=== PATIENT | female | born 1980 | race Caucasian/White ===

== ENCOUNTER 2017-05-05 12:51 | Emergency (ER) | payer OTHER ==
[~2017-05-05] VITALS: Ht 157.5 cm; Wt 56.7 kg
[~2017-05-05 12:51] MED LIST: ABILIFY 5 MG TAB5 M1; ACCUNEB SO1.25 MG/1; ALPRAZOLAM PO; ALPRAZOLAM1 MG PO; ALPRAZOLAM2 MG PO; B-12 DOTS500 MCG PO; BENADRYL25 MG PO; BENZONATATE100 MG PO; CECLOR500 MG PO; DIFLUCAN150 MG PO; DILANTIN 100 M100 MG; DILANTIN100 MG PO; DOXYCYCLINE 10100 M1 PO; DRONABINOL10 MG; DRONABINOL5 MG; DURAGESIC1 EAC2; ERYTHROMYCIN250 MG PO; FENTANYL 1100 MCG/HR; FENTANYL PA50 MCG/HR TP; FLOMAX0.4 MG PO; GABAPENTIN600 M1 PO; HYDROCODONE-AP1 EAC6 PO; KEPPRA 500 MG500 M1 PO; LEXAPRO 10 MG T10 M2 PO; LEXAPRO20 MG PO; MACROBID 100 M100 M1 PO; MARINOL2.5 MG; MELADOX3 MG PO; NEPHRO-VITE RX1 TA1 PO; NITROFURANTOIN100 MG PO; NORCO 5-325 TA1 EACH PO; ONDANSETRON ODT8 MG PO; OXYCODONE; OXYCODONE HCL 55 MG PO; OXYCODONE HCL15 MG PO; OXYCODONE HCL5 M1 PO; OXYCONTIN10 M1 PO; OXYCONTIN15 MG PO; OXYCONTIN20 MG PO; PERCOCET 10-321 EACH PO; PERCOCET 5-3251 EACH PO; PHENERGAN 25 MG25 M1; PHENERGAN 25 MG25 M1 PO; PHENERGAN25 MG RECTAL; POTASSIUM PO; PREDNISONE; PROMETHAZINE12.5 M1 PO; PROTONIX40 M1 PO; PROTONIX40 M2; RESTORIL30 MG; RESTORIL30 MG PO; ROXICET 5-3251 EACH PO; ROXICODONE15 M1 PO; ROXICODONE5 M1 PO; ROXICODONE5 MG PO; SPRINTEC1 EACH; TIGAN RE; TORADOL 10 MG T10 MG PO; TYLENOL325 MG PO; VANCOCIN 125 M125 M1 PO; VANCOCIN 250 M250 MG PO; VIBRAMYCIN 100100 M2 PO; VICODIN 5-5001 EACH PO; VITAMIN B-650 M1 PO; VOLTAREN; VOLTAREN GEL 1100 G1 TOP; WELCHOL 625 MG625 M1 PO; XANAX 0.25 MG0.25 MG PO; XANAX 0.5 MG0.5 MG PO; XANAX 1 MG TABLE1 MG PO; XANAX XR1 MG PO; XANAX XR2 MG PO; ZANTAC 150MG T150 M1; ZANTAC 150MG T150 MG PO; ZOFRAN 4 MG ORAL4 M1 DIS; ZOFRAN ODT4 MG PO; ZOFRAN4 MG PO; ZOFRAN8 MG PO; ZPAK PO; [UNRECOGNIZED DRUG - OTHER] RE
[2017-05-05] MEDS ORDERED: OXYCODONE HCL 55 MG PO ×2 (13:56)
[2017-05-05] MEDS ORDERED: IBUPROFEN 200200 M1 PO ×2 (13:56)
[2017-05-05 14:54] LABS: ABSOLUTE NEUTROPHILS 3.3 thou/uL (1.4-8.2); BASOPHILS 1.1 % (0.0-2.0); EOSINOPHILS 1.8 % (0.0-3.0); HEMATOCRIT 42.3 % (37.0-47.0); HEMOGLOBIN 13.8 gm/dL (12.0-15.0); LYMPHOCYTES 43.2 % (24.0-44.0); MCH 30.1 pg (26.0-34.0); MCHC 32.6 g/dL (28.0-37.0); MCV 92.3 fL (80.0-100.0); MONOCYTES 5.4 % (1.0-8.0); POLYS 48.5 % (36.0-66.0); RBC 4.58 mil/uL (4.20-5.00); RDW 14.7 % (10.5-14.5); WBC 6.9 thou/uL (4.0-11.0)
[2017-05-05 15:03] LABS: CREATININE 0.6 mg/dL (0.6-1.0); POTASSIUM 4.1 mmol/L (3.5-5.1)
[2017-05-05 15:09] LABS: ALBUMIN 4.1 g/dL (3.4-5.0); TOTAL BILIRUBIN 0.3 mg/dL (<0.1-1.0); TOTAL PROTEIN 7.4 g/dL (6.4-8.2)
[2017-05-05 15:29] LABS: URINE BILIRUBIN NEGATIVE (Negative); URINE BLOOD 3+ (Negative); URINE CLARITY CLEAR; URINE COLOR YELLOW; URINE GLUCOSE-RANDOM* NEGATIVE (Negative); URINE KETONES NEGATIVE (Negative); URINE NITRITE-REFLEX NEGATIVE (Negative); URINE PROTEIN (DIPSTICK) NEGATIVE (Negative); URINE SPECIFIC GRAVITY <= 1.005 (1.003-1.035); URINE UROBILINOGEN 0.2 E.U./dl (0.2-1.0)
[2017-05-05 15:30] LABS: PLATELET COUNT 228 thou/uL (150-400)
[2017-05-05 15:30] LABS: URINE LEUKOCYTES-REFLEX TRACE (Negative)
[2017-05-05 15:36] LABS: SQUAMOUS 4-10 Moderate /LPF (0-3)
[2017-05-05 15:37] LABS: BACTERIA-REFLEX None Seen /HPF (None Seen); CASTS None Seen /LPF (None Seen); CRYSTALS None Seen /LPF (None Seen); URINE RBC 3-10 Few /HPF (0-2); URINE WBC-REFLEX 0-5 Rare /HPF (0-5)
[2017-05-05 16:49] VITALS: BP 106/71
[2017-05-17] MEDS ORDERED: MARINOL10 MG PO ×2 (01:09)
[2017-05-17] MEDS ORDERED: VOLTAREN100 GM TOP ×2 (01:09)
[2017-05-17] MEDS ORDERED: UROCIT-K10 ME1 PO ×2 (01:10)
[2017-05-17] MEDS ORDERED: DURAGESIC1 EAC1 TRANSDERM ×2 (01:10)
[2017-05-17] MEDS ORDERED: CLONAZEPAM 0.50.5 M1 PO ×2 (01:11)
[2017-06-25] MEDS ORDERED: LEXAPRO 10 MG T10 M2 PO ×2 (21:03)
[2017-06-25] MEDS ORDERED: HYDROCODONE-AP1 EAC6 PO ×2 (23:16)
[2017-06-25] MEDS ORDERED: ZOFRAN ODT8 MG PO ×2 (23:16)
== END 2017-05-05 17:37 | disposition home or self-care (01) ==
LOC: ER 12:51
PROVIDERS: Emergency Medicine
DX: K31.84 Gastroparesis (principal); Z76.5 Malingerer [conscious simulation]; R10.9 Unspecified abdominal pain; G89.29 Other chronic pain; Z90.5 Acquired absence of kidney; F32.9 Major depressive disorder, single episode, unspecified; F12.10 Cannabis abuse, uncomplicated; Z88.1 Allergy status to other antibiotic agents; Z88.0 Allergy status to penicillin; Z88.6 Allergy status to analgesic agent; Z88.8 Allergy status to other drugs, medicaments and biological substances

== ENCOUNTER 2017-06-25 19:40 | Emergency (ER) | payer OTHER ==
[~2017-06-25] VITALS: Ht 157.5 cm; Wt 58.1 kg
[~2017-06-25 19:40] MED LIST changes: +CLONAZEPAM 0.50.5 M1 PO; +DURAGESIC1 EAC1 TRANSDERM; +IBUPROFEN 200200 M1 PO; +MARINOL10 MG PO; +UROCIT-K10 ME1 PO; +VOLTAREN100 GM TOP
[2017-06-25] MEDS ORDERED: LEXAPRO 10 MG T10 M2 PO (21:03)
[2017-06-25] MEDS ORDERED: ZOFRAN ODT8 MG PO (23:16)
[2017-06-25] MEDS ORDERED: HYDROCODONE-AP1 EAC6 PO (23:16)
[2017-06-25 23:25] VITALS: BP 114/68
[2017-06-29] MEDS ORDERED: DURAGESIC25 MCG/HR TRANSDERM (11:38)
== END 2017-06-25 23:27 | disposition home or self-care (01) ==
LOC: ER 19:40
DX: S20.212A Contusion of left front wall of thorax, initial encounter (principal); S70.02XA Contusion of left hip, initial encounter; G89.29 Other chronic pain; R10.9 Unspecified abdominal pain; R11.2 Nausea with vomiting, unspecified; F32.9 Major depressive disorder, single episode, unspecified; K31.84 Gastroparesis; Z88.2 Allergy status to sulfonamides; Z88.7 Allergy status to serum and vaccine; Z88.0 Allergy status to penicillin; Z88.1 Allergy status to other antibiotic agents; Z88.8 Allergy status to other drugs, medicaments and biological substances; Z88.6 Allergy status to analgesic agent; W18.39XA Other fall on same level, initial encounter; Y93.89 Activity, other specified; Y92.89 Other specified places as the place of occurrence of the external cause; Y99.8 Other external cause status

== ENCOUNTER 2017-06-28 20:47 | Emergency (ER) | payer OTHER ==
[~2017-06-28] VITALS: Ht 157.5 cm; Wt 58.1 kg
--- NOTE | ~2017-06-28 | EKG ---
[address] [address] ELECTROCARDIOGRAM REPORT Name: KINDRA OLIVARES Room #: 170-1 [facility] M.R.#: [id number] Admission: 06/28/17 Attend Phys: Yamilet Devlin Discharge: Date of : 84 Report #: [id number] THIS REPORT FOR: //name// 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
[~2017-06-28 20:47] MED LIST changes: +ZOFRAN ODT8 MG PO
[2017-06-28 20:49] VITALS: BP 111/77
[2017-06-28 22:02] LABS: ABSOLUTE NEUTROPHILS 4.3 thou/uL (1.4-8.2); BASOPHILS 0.9 % (0.0-2.0); EOSINOPHILS 2.5 % (0.0-3.0); HEMATOCRIT 39.2 % (37.0-47.0); HEMOGLOBIN 13.1 gm/dL (12.0-15.0); LYMPHOCYTES 36.3 % (24.0-44.0); MCH 31.3 pg (26.0-34.0); MCHC 33.5 g/dL (28.0-37.0); MCV 93.5 fL (80.0-100.0); PLATELET COUNT 254 thou/uL (150-400); POLYS 54.3 % (36.0-66.0); RBC 4.19 mil/uL (4.20-5.00); RDW 14.4 % (10.5-14.5); WBC 7.9 thou/uL (4.0-11.0)
[2017-06-28 22:07] LABS: ANION GAP 6 mmol/L (7-16); BUN 14 mg/dL (7-18); CALCIUM 8.9 mg/dL (8.5-10.1); CHLORIDE 104 mmol/L (98-107); CO2 29 mmol/L (21-32); CREATININE 0.9 mg/dL (0.6-1.0); GLUCOSE 92 mg/dL (74-106); POTASSIUM 3.9 mmol/L (3.5-5.1); SODIUM 139 mmol/L (136-145)
[2017-06-28 22:15] LABS: ALBUMIN 3.9 g/dL (3.4-5.0); LIPASE 145 U/L (73-393); SGOT 19 U/L (15-37); SGPT 30 U/L (30-65); TOTAL BILIRUBIN 0.2 mg/dL (<0.1-1.0); TOTAL PROTEIN 6.9 g/dL (6.4-8.2); TROPONIN-I < 0.04 ng/mL (<0.06)
[2017-06-29 04:03] LABS: URINE BILIRUBIN NEGATIVE (Negative); URINE BLOOD 3+ (Negative); URINE CLARITY CLEAR; URINE COLOR YELLOW; URINE GLUCOSE-RANDOM* NEGATIVE (Negative); URINE KETONES NEGATIVE (Negative); URINE LEUKOCYTES-REFLEX NEGATIVE (Negative); URINE NITRITE-REFLEX NEGATIVE (Negative); URINE PROTEIN (DIPSTICK) NEGATIVE (Negative); URINE SPECIFIC GRAVITY 1.015 (1.005-1.035); URINE UROBILINOGEN 0.2 E.U./dl (0.2-1.0)
[2017-06-29 04:19] LABS: CASTS None Seen /LPF (None Seen); MUCUS 0-3 Light strn/LPF (None Seen); SQUAMOUS 0-3 Few /LPF (0-3); URINE WBC-REFLEX 0-5 Rare /HPF (0-5)
[2017-06-29 04:20] LABS: BACTERIA-REFLEX 1-9 Few /HPF (None Seen); CRYSTALS None Seen /LPF (None Seen)
[2017-06-29] MEDS ORDERED: DURAGESIC25 MCG/HR TRANSDERM ×2 (11:38)
[2017-06-29 11:44] VITALS: BP 117/51
[2017-06-29 12:02] VITALS: BP 117/51
== END 2017-06-29 12:03 | disposition home or self-care (01) ==
LOC: ER 20:47 → EROBS 22:01 → ER 06-29 12:03
PROVIDERS: Emergency Medicine
DX: G89.29 Other chronic pain (principal); R10.9 Unspecified abdominal pain; R11.2 Nausea with vomiting, unspecified; R07.89 Other chest pain; Z85.05 Personal history of malignant neoplasm of liver; K58.9 Irritable bowel syndrome, unspecified; Z88.1 Allergy status to other antibiotic agents; Z88.0 Allergy status to penicillin; Z88.5 Allergy status to narcotic agent; Z88.2 Allergy status to sulfonamides; Z88.8 Allergy status to other drugs, medicaments and biological substances

== ENCOUNTER 2017-07-13 16:25 | Emergency (ER) | payer OTHER ==
[~2017-07-13] VITALS: Ht 157.5 cm; Wt 58.1 kg
[~2017-07-13 16:25] MED LIST changes: +DURAGESIC25 MCG/HR TRANSDERM
[2017-07-13 17:22] LABS: ABSOLUTE NEUTROPHILS 3.3 thou/uL (1.4-8.2); BASOPHILS 0.8 % (0.0-2.0); EOSINOPHILS 0.9 % (0.0-3.0); HEMATOCRIT 39.9 % (37.0-47.0); HEMOGLOBIN 13.6 gm/dL (12.0-15.0); LYMPHOCYTES 32.1 % (24.0-44.0); MCH 31.5 pg (26.0-34.0); MCHC 34.1 g/dL (28.0-37.0); MCV 92.6 fL (80.0-100.0); MONOCYTES 6.6 % (1.0-8.0); PLATELET COUNT 269 thou/uL (150-400); POLYS 59.6 % (36.0-66.0); RBC 4.31 mil/uL (4.20-5.00); RDW 14.1 % (10.5-14.5); WBC 5.6 thou/uL (4.0-11.0)
[2017-07-13 17:29] LABS: CALCIUM 9.6 mg/dL (8.5-10.1); CREATININE 0.7 mg/dL (0.6-1.0); POTASSIUM 3.4 mmol/L (3.5-5.1)
[2017-07-13 17:35] LABS: ALBUMIN 4.4 g/dL (3.4-5.0); DIRECT BILIRUBIN 0.1 mg/dL (<0.1-0.3); TOTAL BILIRUBIN 0.7 mg/dL (<0.1-1.0); TOTAL PROTEIN 7.8 g/dL (6.4-8.2)
[2017-07-13] MEDS ORDERED: PHENERGAN 25 MG25 M1 PO (18:09)
[2017-07-13] MEDS ORDERED: PROMS25 WY RECTAL (18:09)
[2017-07-13] MEDS ORDERED: OXYCODONE HCL 55 MG PO (19:23)
[2017-07-13] MEDS ORDERED: ZOFRAN ODT4 MG PO (19:29)
[2017-07-13] MEDS ORDERED: OXYCODONE HCL15 MG PO (19:41)
[2017-07-13 20:26] VITALS: BP 106/61
== END 2017-07-13 20:29 | disposition home or self-care (01) ==
LOC: ER 16:25
PROVIDERS: Emergency Medicine
DX: G89.29 Other chronic pain (principal); R10.13 Epigastric pain; R11.2 Nausea with vomiting, unspecified; R19.7 Diarrhea, unspecified; F32.9 Major depressive disorder, single episode, unspecified; Z90.49 Acquired absence of other specified parts of digestive tract; K31.84 Gastroparesis; Z88.0 Allergy status to penicillin; Z88.1 Allergy status to other antibiotic agents; Z88.2 Allergy status to sulfonamides; Z88.7 Allergy status to serum and vaccine; Z88.8 Allergy status to other drugs, medicaments and biological substances

== ENCOUNTER 2017-07-27 15:05 | Emergency (ER) | payer OTHER ==
[~2017-07-27] VITALS: Ht 165.1 cm; Wt 59.0 kg
--- NOTE | ~2017-07-27 | EKG ---
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 : 1980 Requested By: Jaime Lanza Order Number: [id number] MD: Dong Parker Measurements Intervals [place] Rate: 77 P: 51 [place]: 126 QRS: 85 QRSD: 80 T: 70 QT: 405 QTc: 459 Interpretive Statements Sinus rhythm Nonspecific T abnormalities, lateral leads Compared to ECG 06/28/2017 21:22:29 T-wave abnormality now present Electronically Signed On 07-28-2017 8:23:45 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
[~2017-07-27 15:05] MED LIST changes: +PROMS25 WY RECTAL
[2017-07-27 16:19] LABS: ABSOLUTE NEUTROPHILS 2.6 thou/uL (1.4-8.2); BASOPHILS 0.9 % (0.0-2.0); EOSINOPHILS 3.1 % (0.0-3.0); HEMATOCRIT 41.3 % (37.0-47.0); MCH 31.9 pg (26.0-34.0); MCHC 33.9 g/dL (28.0-37.0); MCV 94.1 fL (80.0-100.0); MONOCYTES 9.1 % (1.0-8.0); PLATELET COUNT 239 thou/uL (150-400); POLYS 46.9 % (36.0-66.0); RBC 4.39 mil/uL (4.20-5.00); RDW 14.2 % (10.5-14.5); WBC 5.5 thou/uL (4.0-11.0)
[2017-07-27 16:30] LABS: ANION GAP 6 mmol/L (7-16); BUN 14 mg/dL (7-18); CALCIUM 8.9 mg/dL (8.5-10.1); CHLORIDE 105 mmol/L (98-107); CO2 27 mmol/L (21-32); CREATININE 0.7 mg/dL (0.6-1.0); GLUCOSE 96 mg/dL (74-106); POTASSIUM 4.6 mmol/L (3.5-5.1); SODIUM 138 mmol/L (136-145)
[2017-07-27 16:33] LABS: URINE BILIRUBIN NEGATIVE (Negative); URINE BLOOD NEGATIVE (Negative); URINE CLARITY CLEAR; URINE COLOR YELLOW; URINE GLUCOSE-RANDOM* NEGATIVE (Negative); URINE KETONES NEGATIVE (Negative); URINE LEUKOCYTES NEGATIVE (Negative); URINE NITRITE NEGATIVE (Negative); URINE PROTEIN (DIPSTICK) NEGATIVE (Negative); URINE UROBILINOGEN 0.2 E.U./dl (0.2-1.0)
[2017-07-27 16:37] LABS: ALBUMIN 3.8 g/dL (3.4-5.0); DIRECT BILIRUBIN < 0.1 mg/dL (<0.1-0.3); LIPASE 149 U/L (73-393); SGOT 25 U/L (15-37); SGPT 22 U/L (30-65); TOTAL BILIRUBIN 0.2 mg/dL (<0.1-1.0); TOTAL PROTEIN 7.2 g/dL (6.4-8.2)
[2017-07-27] MEDS ORDERED: CARAFATE 1 GM TA1 G1 PO (17:37)
[2017-07-27] MEDS ORDERED: ATIVAN0.5 MG PO (17:45)
[2017-07-27 18:09] VITALS: BP 129/80
== END 2017-07-27 18:10 | disposition home or self-care (01) ==
LOC: ER 15:05
PROVIDERS: Nurse Practitioner
DX: G89.29 Other chronic pain (principal); R10.9 Unspecified abdominal pain; Z90.49 Acquired absence of other specified parts of digestive tract; Z88.0 Allergy status to penicillin; Z88.2 Allergy status to sulfonamides; Z88.1 Allergy status to other antibiotic agents; Z88.8 Allergy status to other drugs, medicaments and biological substances

== ENCOUNTER 2017-12-15 23:46 | Emergency (ER) | payer OTHER ==
[~2017-12-15] VITALS: Ht 157.5 cm; Wt 62.1 kg
[~2017-12-15 23:46] MED LIST changes: +ATIVAN0.5 MG PO; +CARAFATE 1 GM TA1 G1 PO
[2017-12-16 02:12] LABS: ABSOLUTE NEUTROPHILS 7.1 thou/uL (1.4-8.2); BASOPHILS 1.1 % (0.0-2.0); EOSINOPHILS 2.1 % (0.0-3.0); HEMATOCRIT 36.4 % (37.0-47.0); HEMOGLOBIN 12.5 gm/dL (12.0-15.0); LYMPHOCYTES 25.2 % (24.0-44.0); MCH 32.2 pg (26.0-34.0); MCHC 34.5 g/dL (28.0-37.0); MCV 93.3 fL (80.0-100.0); MONOCYTES 5.7 % (1.0-8.0); PLATELET COUNT 267 thou/uL (150-400); POLYS 65.9 % (36.0-66.0); WBC 10.7 thou/uL (4.0-11.0)
[2017-12-16 02:31] LABS: ANION GAP 9 mmol/L (7-16); BUN 12 mg/dL (7-18); CALCIUM 9.2 mg/dL (8.5-10.1); CHLORIDE 103 mmol/L (98-107); CO2 28 mmol/L (21-32); CREATININE 0.8 mg/dL (0.6-1.0); GLUCOSE 103 mg/dL (74-106); POTASSIUM 3.4 mmol/L (3.5-5.1); SODIUM 140 mmol/L (136-145)
[2017-12-16 02:36] LABS: DIRECT BILIRUBIN < 0.1 mg/dL (<0.1-0.3); LIPASE 124 U/L (73-393); SGOT 29 U/L (15-37); SGPT 40 U/L (30-65); TOTAL BILIRUBIN 0.3 mg/dL (<0.1-1.0); TOTAL PROTEIN 7.2 g/dL (6.4-8.2)
[2017-12-16 02:55] LABS: URINE BILIRUBIN ND (Negative); URINE CLARITY CLEAR; URINE GLUCOSE-RANDOM* ND (Negative); URINE KETONES ND (Negative); URINE PROTEIN (DIPSTICK) ND (Negative); URINE SPECIFIC GRAVITY ND (1.005-1.035)
[2017-12-16 02:56] LABS: URINE BLOOD ND (Negative); URINE COLOR ORANGE; URINE LEUKOCYTES-REFLEX ND (Negative); URINE NITRITE-REFLEX ND (Negative); URINE UROBILINOGEN ND E.U./dl (0.2-1.0)
[2017-12-16 03:03] LABS: MUCUS 0-3 Light strn/LPF (None Seen); SQUAMOUS >10 Many /LPF (0-3)
[2017-12-16 03:04] LABS: BACTERIA-REFLEX >30 Many /HPF (None Seen); CASTS None Seen /LPF (None Seen); CRYSTALS None Seen /LPF (None Seen); URINE RBC >20 Many /HPF (0-2); URINE WBC-REFLEX 6-15 Few /HPF (0-5)
[2017-12-16] MEDS ORDERED: IMODIUM A-D2 MG PO (05:49)
[2017-12-16] MEDS ORDERED: ZOFRAN ODT4 MG PO (05:50)
== END 2017-12-16 06:27 | disposition home or self-care (01) ==
LOC: ER 23:46
PROVIDERS: Emergency Medicine
DX: R19.7 Diarrhea, unspecified (principal); R10.9 Unspecified abdominal pain; M54.9 Dorsalgia, unspecified; F11.20 Opioid dependence, uncomplicated; F32.9 Major depressive disorder, single episode, unspecified; G89.29 Other chronic pain; Z85.05 Personal history of malignant neoplasm of liver; Z90.49 Acquired absence of other specified parts of digestive tract; Z86.718 Personal history of other venous thrombosis and embolism; Z88.2 Allergy status to sulfonamides; Z88.0 Allergy status to penicillin; Z88.1 Allergy status to other antibiotic agents; Z88.8 Allergy status to other drugs, medicaments and biological substances

== ENCOUNTER 2017-12-17 23:24 | Emergency (ER) | payer OTHER ==
[~2017-12-17] VITALS: Ht 157.5 cm; Wt 59.0 kg
[~2017-12-17 23:24] MED LIST changes: +IMODIUM A-D2 MG PO
[2017-12-17 23:53] LABS: URINE BILIRUBIN NEGATIVE (Negative); URINE BLOOD 3+ (Negative); URINE CLARITY CLEAR; URINE COLOR YELLOW; URINE GLUCOSE-RANDOM* TRACE (Negative); URINE KETONES NEGATIVE (Negative); URINE PROTEIN (DIPSTICK) 1+ (Negative); URINE SPECIFIC GRAVITY <= 1.005 (1.005-1.035)
[2017-12-17 23:57] LABS: URINE LEUKOCYTES-REFLEX 2+ (Negative); URINE NITRITE-REFLEX POSITIVE (Negative)
[2017-12-18 00:01] LABS: CASTS None Seen /LPF (None Seen); MUCUS None Seen strn/LPF (None Seen); SQUAMOUS None Seen /LPF (0-3)
[2017-12-18 00:02] LABS: CRYSTALS None Seen /LPF (None Seen)
[2017-12-18 02:55] LABS: ABSOLUTE NEUTROPHILS 7.2 thou/uL (1.4-8.2); BASOPHILS 0.6 % (0.0-2.0); EOSINOPHILS 1.5 % (0.0-3.0); HEMATOCRIT 36.4 % (37.0-47.0); HEMOGLOBIN 12.5 gm/dL (12.0-15.0); LYMPHOCYTES 20.1 % (24.0-44.0); MCH 31.8 pg (26.0-34.0); MCHC 34.2 g/dL (28.0-37.0); MCV 93.1 fL (80.0-100.0); PLATELET COUNT 269 thou/uL (150-400); POLYS 72.8 % (36.0-66.0); RBC 3.91 mil/uL (4.20-5.00); WBC 9.8 thou/uL (4.0-11.0)
[2017-12-18 03:01] LABS: CALCIUM 9.1 mg/dL (8.5-10.1); CREATININE 0.9 mg/dL (0.6-1.0); POTASSIUM 3.7 mmol/L (3.5-5.1)
[2017-12-18] MEDS ORDERED: KEFLEX500 M1 PO (03:12)
== END 2017-12-18 03:49 | disposition home or self-care (01) ==
LOC: ER 23:24
PROVIDERS: Emergency Medicine
DX: N39.0 Urinary tract infection, site not specified (principal); R19.7 Diarrhea, unspecified; F11.20 Opioid dependence, uncomplicated; F32.9 Major depressive disorder, single episode, unspecified; G89.29 Other chronic pain; Z85.05 Personal history of malignant neoplasm of liver; Z86.718 Personal history of other venous thrombosis and embolism; Z90.49 Acquired absence of other specified parts of digestive tract; Z88.2 Allergy status to sulfonamides; Z88.0 Allergy status to penicillin; Z88.1 Allergy status to other antibiotic agents; Z88.8 Allergy status to other drugs, medicaments and biological substances

== ENCOUNTER 2018-07-23 12:13 | Emergency (ER) | payer OTHER ==
[~2018-07-23] VITALS: Ht 157.5 cm; Wt 59.0 kg
[~2018-07-23 12:13] MED LIST changes: +KEFLEX500 M1 PO
[2018-07-23] MEDS ORDERED: ZOFRAN ODT4 MG PO (13:09)
[2018-07-23 14:33] LABS: BASOPHILS 0.6 % (0.0-2.0); EOSINOPHILS 1.7 % (0.0-3.0); HEMATOCRIT 36.1 % (37.0-47.0); HEMOGLOBIN 12.3 gm/dL (12.0-15.0); MCH 31.3 pg (26.0-34.0); MCHC 33.9 g/dL (28.0-37.0); MCV 92.3 fL (80.0-100.0); MONOCYTES 8.8 % (1.0-8.0); PLATELET COUNT 321 thou/uL (150-400); POLYS 58.9 % (36.0-66.0); RBC 3.91 mil/uL (4.20-5.00); RDW 15.3 % (10.5-14.5); WBC 8.4 thou/uL (4.0-11.0)
[2018-07-23 14:41] LABS: ANION GAP 11 mmol/L (7-16); BUN 19 mg/dL (7-18); CHLORIDE 104 mmol/L (98-107); CO2 26 mmol/L (21-32); CREATININE 0.8 mg/dL (0.6-1.0); GLUCOSE 85 mg/dL (74-106); SODIUM 141 mmol/L (136-145)
[2018-07-23 14:46] LABS: ALBUMIN 3.9 g/dL (3.4-5.0); DIRECT BILIRUBIN < 0.1 mg/dL (<0.1-0.3); LIPASE 255 U/L (73-393); SGOT 21 U/L (15-37); SGPT 25 U/L (30-65); TOTAL BILIRUBIN 0.3 mg/dL (<0.1-1.0); TOTAL PROTEIN 6.8 g/dL (6.4-8.2)
[2018-07-23 16:05] LABS: URINE BILIRUBIN NEGATIVE (Negative); URINE BLOOD NEGATIVE (Negative); URINE CLARITY CLEAR; URINE COLOR YELLOW; URINE GLUCOSE-RANDOM* NEGATIVE (Negative); URINE KETONES NEGATIVE (Negative); URINE LEUKOCYTES-REFLEX NEGATIVE (Negative); URINE NITRITE-REFLEX NEGATIVE (Negative); URINE PROTEIN (DIPSTICK) NEGATIVE (Negative); URINE SPECIFIC GRAVITY <= 1.005 (1.005-1.035); URINE UROBILINOGEN 0.2 E.U./dl (0.2-1.0)
[2018-07-23] MEDS ORDERED: NORFLEX100 MG PO (16:08)
[2018-07-23 16:47] VITALS: BP 114/72
== END 2018-07-23 16:48 | disposition home or self-care (01) ==
LOC: ER 12:13
PROVIDERS: Emergency Medicine
DX: S16.1XXA Strain of muscle, fascia and tendon at neck level, initial encounter (principal); R10.13 Epigastric pain; K58.9 Irritable bowel syndrome, unspecified; R10.9 Unspecified abdominal pain; G89.29 Other chronic pain; F32.9 Major depressive disorder, single episode, unspecified; K31.84 Gastroparesis; I10 Essential (primary) hypertension; Z88.8 Allergy status to other drugs, medicaments and biological substances; Z88.6 Allergy status to analgesic agent; Z88.1 Allergy status to other antibiotic agents; Z88.0 Allergy status to penicillin; Z88.2 Allergy status to sulfonamides; Z91.041 Radiographic dye allergy status; Z88.7 Allergy status to serum and vaccine; Z90.5 Acquired absence of kidney; Z90.49 Acquired absence of other specified parts of digestive tract; Z86.718 Personal history of other venous thrombosis and embolism; Z85.05 Personal history of malignant neoplasm of liver; Z85.528 Personal history of other malignant neoplasm of kidney; V89.2XXA Person injured in unspecified motor-vehicle accident, traffic, initial encounter; Y92.89 Other specified places as the place of occurrence of the external cause; Y93.89 Activity, other specified; Y99.8 Other external cause status

== ENCOUNTER 2018-07-25 19:39 | Emergency (ER) | payer OTHER ==
[~2018-07-25] VITALS: Ht 157.5 cm; Wt 59.0 kg
[~2018-07-25 19:39] MED LIST changes: +NORFLEX100 MG PO
[2018-07-25 20:07] LABS: AMP/METHAMP Negative (Negative); BARBITURATES Negative (Negative); BENZODIAZEPINES Negative (Negative); COCAINE Negative (Negative); METHADONE Negative (Negative); OPIATES Negative (Negative); PCP Negative (Negative)
[2018-07-25] MEDS ORDERED: ROXICODONE5 M2 PO (20:40)
[2018-07-25] MEDS ORDERED: CYCLOBENZAPRINE5 MG PO (20:40)
[2018-07-25 21:49] VITALS: BP 121/72
== END 2018-07-25 21:15 | disposition home or self-care (01) ==
LOC: ER 19:39
PROVIDERS: Emergency Medicine
DX: S16.1XXA Strain of muscle, fascia and tendon at neck level, initial encounter (principal); S39.012A Strain of muscle, fascia and tendon of lower back, initial encounter; G89.29 Other chronic pain; R10.9 Unspecified abdominal pain; F32.9 Major depressive disorder, single episode, unspecified; K31.84 Gastroparesis; K58.9 Irritable bowel syndrome, unspecified; Z88.8 Allergy status to other drugs, medicaments and biological substances; Z88.6 Allergy status to analgesic agent; Z88.1 Allergy status to other antibiotic agents; Z88.0 Allergy status to penicillin; Z88.2 Allergy status to sulfonamides; Z91.048 Other nonmedicinal substance allergy status; Z88.7 Allergy status to serum and vaccine; Z90.49 Acquired absence of other specified parts of digestive tract; Z86.718 Personal history of other venous thrombosis and embolism; Z85.528 Personal history of other malignant neoplasm of kidney; Z90.5 Acquired absence of kidney; V89.2XXA Person injured in unspecified motor-vehicle accident, traffic, initial encounter; Y92.89 Other specified places as the place of occurrence of the external cause; Y93.89 Activity, other specified; Y99.8 Other external cause status

== ENCOUNTER 2018-07-30 20:19 | Emergency (ER) | payer OTHER ==
[~2018-07-30] VITALS: Ht 157.5 cm; Wt 59.0 kg
[~2018-07-30 20:19] MED LIST changes: +CYCLOBENZAPRINE5 MG PO; +ROXICODONE5 M2 PO
[2018-07-31 00:17] LABS: URINE BILIRUBIN NEGATIVE (Negative); URINE BLOOD NEGATIVE (Negative); URINE CLARITY CLEAR; URINE COLOR YELLOW; URINE GLUCOSE-RANDOM* NEGATIVE (Negative); URINE KETONES NEGATIVE (Negative); URINE NITRITE-REFLEX NEGATIVE (Negative); URINE PROTEIN (DIPSTICK) TRACE (Negative); URINE SPECIFIC GRAVITY 1.015 (1.005-1.035); URINE UROBILINOGEN 0.2 E.U./dl (0.2-1.0)
[2018-07-31 00:18] LABS: URINE LEUKOCYTES-REFLEX 1+ (Negative)
[2018-07-31 00:27] LABS: SQUAMOUS 0-3 Few /LPF (0-3)
[2018-07-31 00:28] LABS: CASTS None Seen /LPF (None Seen); CRYSTALS None Seen /LPF (None Seen); MUCUS 4-6 Moderate strn/LPF (None Seen); URINE RBC 3-10 Few /HPF (0-2)
[2018-07-31] MEDS ORDERED: MEDROLDOSEPACK PO (00:50)
[2018-07-31] MEDS ORDERED: MACROBID 100 M100 M1 PO (00:50)
[2018-07-31] MEDS ORDERED: FLEXERIL PO (00:50)
[2018-07-31 01:08] VITALS: BP 111/85
== END 2018-07-31 01:09 | disposition home or self-care (01) ==
LOC: ER 20:19
PROVIDERS: Emergency Medicine
DX: N39.0 Urinary tract infection, site not specified (principal); M54.41 Lumbago with sciatica, right side; G89.29 Other chronic pain; R10.9 Unspecified abdominal pain; F32.9 Major depressive disorder, single episode, unspecified; K31.84 Gastroparesis; K58.9 Irritable bowel syndrome, unspecified; Z88.6 Allergy status to analgesic agent; Z88.0 Allergy status to penicillin; Z88.1 Allergy status to other antibiotic agents; Z88.2 Allergy status to sulfonamides; Z88.7 Allergy status to serum and vaccine; Z88.8 Allergy status to other drugs, medicaments and biological substances; Z85.528 Personal history of other malignant neoplasm of kidney; Z90.5 Acquired absence of kidney; Z85.05 Personal history of malignant neoplasm of liver; Z90.49 Acquired absence of other specified parts of digestive tract; Z86.718 Personal history of other venous thrombosis and embolism

== ENCOUNTER 2018-08-08 18:04 | Emergency (ER) | payer OTHER ==
[~2018-08-08] VITALS: Ht 157.5 cm; Wt 60.8 kg
[~2018-08-08 18:04] MED LIST changes: +FLEXERIL PO; +MEDROLDOSEPACK PO
[2018-08-08 19:00] LABS: HEMATOCRIT 35.3 % (37.0-47.0); MCH 31.9 pg (26.0-34.0); MCV 93.7 fL (80.0-100.0); RBC 3.77 mil/uL (4.20-5.00); RDW 15.8 % (10.5-14.5); WBC 7.3 thou/uL (4.0-11.0)
[2018-08-08 19:13] LABS: URINE BILIRUBIN NEGATIVE (Negative); URINE BLOOD NEGATIVE (Negative); URINE CLARITY CLEAR; URINE COLOR YELLOW; URINE GLUCOSE-RANDOM* NEGATIVE (Negative); URINE KETONES NEGATIVE (Negative); URINE LEUKOCYTES-REFLEX NEGATIVE (Negative); URINE NITRITE-REFLEX NEGATIVE (Negative); URINE PROTEIN (DIPSTICK) NEGATIVE (Negative); URINE UROBILINOGEN 0.2 E.U./dl (0.2-1.0)
[2018-08-08 21:42] LABS: CALCIUM 8.7 mg/dL (8.5-10.1); CREATININE 0.6 mg/dL (0.6-1.0); POTASSIUM 4.2 mmol/L (3.5-5.1)
[2018-08-08 23:32] VITALS: BP 115/65
== END 2018-08-08 23:32 | disposition home or self-care (01) ==
LOC: ER 18:04
PROVIDERS: Emergency Medicine
DX: G89.29 Other chronic pain (principal); R10.9 Unspecified abdominal pain; F32.9 Major depressive disorder, single episode, unspecified; Z85.05 Personal history of malignant neoplasm of liver; Z90.49 Acquired absence of other specified parts of digestive tract; Z88.1 Allergy status to other antibiotic agents; Z88.0 Allergy status to penicillin; Z88.7 Allergy status to serum and vaccine; Z88.8 Allergy status to other drugs, medicaments and biological substances

== ENCOUNTER 2018-10-24 15:30 | Emergency (ER) | payer OTHER ==
[~2018-10-24] VITALS: Ht 157.5 cm; Wt 58.5 kg
[2018-10-24 16:14] LABS: ABSOLUTE NEUTROPHILS 3.8 thou/uL (1.4-8.2); BASOPHILS 0.8 % (0.0-2.0); EOSINOPHILS 2.6 % (0.0-3.0); HEMATOCRIT 37.6 % (37.0-47.0); HEMOGLOBIN 12.5 gm/dL (12.0-15.0); LYMPHOCYTES 26.5 % (24.0-44.0); MCH 31.5 pg (26.0-34.0); MCHC 33.2 g/dL (28.0-37.0); MONOCYTES 10.5 % (1.0-8.0); PLATELET COUNT 247 thou/uL (150-400); POLYS 59.6 % (36.0-66.0); RBC 3.96 mil/uL (4.20-5.00); RDW 13.5 % (10.5-14.5); WBC 6.3 thou/uL (4.0-11.0)
[2018-10-24 16:18] LABS: CALCIUM 8.6 mg/dL (8.5-10.1); CREATININE 0.9 mg/dL (0.6-1.0); POTASSIUM 4.3 mmol/L (3.5-5.1)
[2018-10-24 16:24] LABS: ALBUMIN 3.6 g/dL (3.4-5.0); TOTAL BILIRUBIN 0.2 mg/dL (<0.1-1.0); TOTAL PROTEIN 6.3 g/dL (6.4-8.2)
[2018-10-24] MEDS ORDERED: XANAX1 MG PO (16:29)
[2018-10-24 18:38] VITALS: BP 104/57
[2018-10-24 18:40] LABS: URINE BILIRUBIN NEGATIVE (Negative); URINE BLOOD NEGATIVE (Negative); URINE CLARITY CLEAR; URINE GLUCOSE-RANDOM* NEGATIVE (Negative); URINE KETONES NEGATIVE (Negative); URINE NITRITE-REFLEX NEGATIVE (Negative); URINE PROTEIN (DIPSTICK) NEGATIVE (Negative); URINE UROBILINOGEN 0.2 E.U./dl (0.2-1.0)
[2018-10-24 18:41] LABS: URINE COLOR YELLOW; URINE LEUKOCYTES-REFLEX 1+ (Negative)
[2018-10-24 18:42] LABS: SQUAMOUS 0-3 Few /LPF (0-3)
[2018-10-24 18:43] LABS: BACTERIA-REFLEX 1-9 Few /HPF (None Seen); CASTS None Seen /LPF (None Seen); CRYSTALS None Seen /LPF (None Seen); URINE RBC None Seen /HPF (0-2); URINE WBC-REFLEX 0-5 Rare /HPF (0-5)
--- NOTE | 2018-10-25 16:10 | EKG ---
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 : 1980 Requested By: Shasta Calderon Order Number: [id number] MD: Ehsan Walker Measurements Intervals [place] Rate: 132 P: 57 [place]: 98 QRS: 70 QRSD: 114 T: 59 QT: 322 QTc: 477 Interpretive Statements Sinus tachycardia Borderline intraventricular conduction delay Nonspecific ST segment abnormalities Compared to ECG 07/27/2017 15:21:28 Sinus rhythm no longer present Electronically Signed On 10-25-2018 16:10:08 CDT by Ehsan Walker [email or web address] ��������������������������������������������� <ELECTRONICALLY SIGNED> ���������������������������������������� By: Ehsan Walker MD ��������������������������������������������� 10/25/18 1610 1738 1738 Ehsan Walker MD /LEO
== END 2018-10-24 18:55 | disposition home or self-care (01) ==
LOC: ER 15:30
PROVIDERS: Physician Assistant
DX: G89.29 Other chronic pain (principal); M54.5 Low back pain; I42.9 Cardiomyopathy, unspecified; Z85.05 Personal history of malignant neoplasm of liver; Z88.1 Allergy status to other antibiotic agents; Z88.5 Allergy status to narcotic agent; Z88.2 Allergy status to sulfonamides; Z88.8 Allergy status to other drugs, medicaments and biological substances; Z88.7 Allergy status to serum and vaccine

== ENCOUNTER 2018-11-24 22:24 | Emergency (ER) | payer OTHER ==
[~2018-11-24] VITALS: Ht 157.5 cm; Wt 69.8 kg
[~2018-11-24 22:24] MED LIST changes: +XANAX1 MG PO
[2018-11-25 00:58] LABS: BASOPHILS 0.8 % (0.0-2.0); EOSINOPHILS 3.2 % (0.0-3.0); HEMATOCRIT 38.5 % (37.0-47.0); LYMPHOCYTES 25.5 % (24.0-44.0); MCH 31.1 pg (26.0-34.0); MCHC 33.7 g/dL (28.0-37.0); MCV 92.4 fL (80.0-100.0); MONOCYTES 6.4 % (1.0-8.0); PLATELET COUNT 275 thou/uL (150-400); POLYS 64.1 % (36.0-66.0); RBC 4.17 mil/uL (4.20-5.00); RDW 14.2 % (10.5-14.5); WBC 7.8 thou/uL (4.0-11.0)
[2018-11-25 01:12] LABS: ANION GAP 10 mmol/L (7-16); BUN 13 mg/dL (7-18); CALCIUM 8.6 mg/dL (8.5-10.1); CHLORIDE 102 mmol/L (98-107); CO2 26 mmol/L (21-32); CREATININE 0.8 mg/dL (0.6-1.0); GLUCOSE 95 mg/dL (74-106); POTASSIUM 3.9 mmol/L (3.5-5.1); SODIUM 138 mmol/L (136-145)
[2018-11-25 01:16] LABS: ALBUMIN 3.9 g/dL (3.4-5.0); DIRECT BILIRUBIN < 0.1 mg/dL (<0.1-0.3); LIPASE 114 U/L (73-393); SGOT 22 U/L (15-37); SGPT 35 U/L (30-65); TOTAL BILIRUBIN 0.2 mg/dL (<0.1-1.0); TOTAL PROTEIN 7.4 g/dL (6.4-8.2)
[2018-11-25 01:23] LABS: URINE BILIRUBIN NEGATIVE (Negative); URINE BLOOD 3+ (Negative); URINE CLARITY CLEAR; URINE COLOR YELLOW; URINE GLUCOSE-RANDOM* NEGATIVE (Negative); URINE KETONES NEGATIVE (Negative); URINE LEUKOCYTES-REFLEX TRACE (Negative); URINE NITRITE-REFLEX NEGATIVE (Negative); URINE PROTEIN (DIPSTICK) TRACE (Negative); URINE UROBILINOGEN 0.2 E.U./dl (0.2-1.0)
[2018-11-25 01:30] LABS: BACTERIA-REFLEX None Seen /HPF (None Seen); CASTS None Seen /LPF (None Seen); CRYSTALS None Seen /LPF (None Seen); MUCUS None Seen strn/LPF (None Seen); SQUAMOUS 0-3 Few /LPF (0-3); URINE RBC >20 Many /HPF (0-2); URINE WBC-REFLEX 0-5 Rare /HPF (0-5)
[2018-11-25 03:01] VITALS: BP 96/79
== END 2018-11-25 03:01 | disposition home or self-care (01) ==
LOC: ER 22:24
PROVIDERS: Emergency Medicine
DX: G89.29 Other chronic pain (principal); R10.13 Epigastric pain; F32.9 Major depressive disorder, single episode, unspecified; Z85.05 Personal history of malignant neoplasm of liver; Z90.49 Acquired absence of other specified parts of digestive tract; Z88.0 Allergy status to penicillin; Z88.2 Allergy status to sulfonamides; Z88.6 Allergy status to analgesic agent; Z88.8 Allergy status to other drugs, medicaments and biological substances

== ENCOUNTER 2018-12-29 21:53 | Emergency (ER) | payer OTHER ==
[~2018-12-29] VITALS: Ht 157.5 cm; Wt 68.0 kg
[2018-12-29 23:03] LABS: ABSOLUTE NEUTROPHILS 12.2 thou/uL (1.4-8.2); BASOPHILS 0.5 % (0.0-2.0); EOSINOPHILS 0.4 % (0.0-3.0); HEMATOCRIT 35.7 % (37.0-47.0); HEMOGLOBIN 11.7 gm/dL (12.0-15.0); MCH 30.8 pg (26.0-34.0); MCHC 32.8 g/dL (28.0-37.0); MCV 93.7 fL (80.0-100.0); MONOCYTES 6.3 % (1.0-8.0); PLATELET COUNT 314 thou/uL (150-400); POLYS 76.8 % (36.0-66.0); RBC 3.81 mil/uL (4.20-5.00); RDW 14.9 % (10.5-14.5); WBC 15.9 thou/uL (4.0-11.0)
[2018-12-29 23:11] LABS: CALCIUM 8.8 mg/dL (8.5-10.1); CREATININE 0.8 mg/dL (0.6-1.0); POTASSIUM 3.7 mmol/L (3.5-5.1)
[2018-12-30] MEDS ORDERED: XARELTO15 MG PO (00:55)
[2018-12-30 03:02] VITALS: BP 119/50
--- NOTE | 2018-12-31 09:05 | EKG ---
[address] [address] ELECTROCARDIOGRAM REPORT Name: KINDRA OLIVARES [facility] [id number] ������������������ Admission: 12/29/18 ������������������ Attend Phys: Discharge: 12/30/18 ������������������ Date of : 84 Report #: [id number] ����������������������������������������������������������������� [id number] THIS REPORT FOR: //name// [facility] ED Test Date: 2018-12-29 Test Time: 22:10:51 Pat Name: KINDRA OLIVARES Department: Room: Gender: F Specialty Cook: [email or web address] : 1980 Requested By: Keith Grajeda Order Number: [id number] MD: Dong Parker Measurements Intervals [place] Rate: 82 P: 52 [place]: 153 QRS: 62 QRSD: 87 T: 46 QT: 405 QTc: 473 Interpretive Statements Sinus rhythm Normal tracing Compared to ECG 10/24/2018 17:38:34 Sinus tachycardia no longer present Electronically Signed On 12-31-2018 9:04:48 CDT by Dong Parker [email or web address] ��������������������������������������������� <ELECTRONICALLY SIGNED> ���������������������������������������� By: Dong Parker MD, [facility] ��������������������������������������������� 12/31/18 0904 2210 09 Dong Parker MD, FACC /EPI
== END 2018-12-30 03:02 | disposition home or self-care (01) ==
LOC: ER 21:53
PROVIDERS: Emergency Medicine
DX: R07.9 Chest pain, unspecified (principal); G89.29 Other chronic pain; F32.9 Major depressive disorder, single episode, unspecified; Z90.49 Acquired absence of other specified parts of digestive tract; K58.9 Irritable bowel syndrome, unspecified; Z86.718 Personal history of other venous thrombosis and embolism; K31.84 Gastroparesis; Z79.899 Other long term (current) drug therapy; Z88.5 Allergy status to narcotic agent; Z88.1 Allergy status to other antibiotic agents; Z88.0 Allergy status to penicillin; Z88.2 Allergy status to sulfonamides; Z88.8 Allergy status to other drugs, medicaments and biological substances

== ENCOUNTER 2019-04-16 15:38 | Emergency (ER) | payer OTHER ==
[~2019-04-16] VITALS: Ht 157.5 cm; Wt 66.5 kg
[~2019-04-16 15:38] MED LIST changes: +XARELTO15 MG PO
[2019-04-16 15:40] VITALS: BP 124/86
[2019-04-16] MEDS ORDERED: PEPPERMINT MC (16:08)
[2019-04-16] MEDS ORDERED: CAPSAICIN42.5 GM TOP (16:08)
[2019-04-16] MEDS ORDERED: NORFLEX100 MG PO (16:08)
[2019-04-16] MEDS ORDERED: FLEXERIL PO (16:08)
== END 2019-04-16 16:30 | disposition left against medical advice (07) ==
LOC: ER 15:38
DX: R11.2 Nausea with vomiting, unspecified (principal); R06.02 Shortness of breath; K58.9 Irritable bowel syndrome, unspecified; F32.9 Major depressive disorder, single episode, unspecified; Z90.49 Acquired absence of other specified parts of digestive tract; Z86.718 Personal history of other venous thrombosis and embolism; Z91.048 Other nonmedicinal substance allergy status; Z88.0 Allergy status to penicillin; Z88.1 Allergy status to other antibiotic agents; Z88.2 Allergy status to sulfonamides; Z88.6 Allergy status to analgesic agent; Z88.8 Allergy status to other drugs, medicaments and biological substances

== ENCOUNTER 2019-05-01 14:49 | Emergency (ER) | payer OTHER ==
[~2019-05-01] VITALS: Ht 157.5 cm; Wt 66.7 kg
[~2019-05-01 14:49] MED LIST changes: +CAPSAICIN42.5 GM TOP; +PEPPERMINT MC
[2019-05-01 16:34] LABS: ABSOLUTE NEUTROPHILS 6.9 thou/uL (1.4-8.2); BASOPHILS 0.7 % (0.0-2.0); EOSINOPHILS 1.7 % (0.0-3.0); HEMOGLOBIN 13.4 gm/dL (12.0-15.0); LYMPHOCYTES 24.3 % (24.0-44.0); MCH 29.4 pg (26.0-34.0); MCHC 32.6 g/dL (28.0-37.0); MCV 90.3 fL (80.0-100.0); MONOCYTES 5.8 % (1.0-8.0); PLATELET COUNT 350 thou/uL (150-400); POLYS 67.5 % (36.0-66.0); RBC 4.55 mil/uL (4.20-5.00); RDW 15.7 % (10.5-14.5); WBC 10.2 thou/uL (4.0-11.0)
[2019-05-01 16:36] LABS: URINE BILIRUBIN NEGATIVE (Negative); URINE BLOOD 3+ (Negative); URINE CLARITY SL CLOUDY; URINE GLUCOSE-RANDOM* NEGATIVE (Negative); URINE KETONES NEGATIVE (Negative); URINE NITRITE-REFLEX NEGATIVE (Negative); URINE PROTEIN (DIPSTICK) NEGATIVE (Negative); URINE SPECIFIC GRAVITY <= 1.005 (1.005-1.035); URINE UROBILINOGEN 0.2 E.U./dl (0.2-1.0)
[2019-05-01 16:38] LABS: URINE COLOR PINK; URINE LEUKOCYTES-REFLEX 2+ (Negative)
[2019-05-01 16:44] LABS: CALCIUM 9.6 mg/dL (8.5-10.1); CREATININE 0.8 mg/dL (0.6-1.0); POTASSIUM 3.4 mmol/L (3.5-5.1)
[2019-05-01 16:50] LABS: ALBUMIN 4.3 g/dL (3.4-5.0); TOTAL BILIRUBIN 0.4 mg/dL (<0.1-1.0)
[2019-05-01 16:52] LABS: SQUAMOUS >10 Many /LPF (0-3)
[2019-05-01 16:53] LABS: AMORPHOUS URATES Few /LPF (None Seen); CASTS None Seen /LPF (None Seen); URINE RBC 3-10 Few /HPF (0-2); URINE WBC-REFLEX 6-15 Few /HPF (0-5)
[2019-05-01] MEDS ORDERED: KEFLEX500 M1 PO (18:51)
[2019-05-01] MEDS ORDERED: PHENERGAN 25 MG25 M1 PO (19:02)
[2019-05-01 20:43] VITALS: BP 114/79
--- NOTE | 2019-05-03 12:50 | EKG ---
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 : 1980 Requested By: Malcolm Mckeon Order Number: [id number] MD: Dong Parker Measurements Intervals [place] Rate: 77 P: 11 [place]: 144 QRS: 74 QRSD: 82 T: 38 QT: 395 QTc: 448 Interpretive Statements Sinus rhythm No significant abnormality Compared to ECG 12/29/2018 22:10:51 No significant change was found Electronically Signed On 05-03-2019 12:50:07 RUBBER TURNER by Dong Parker [email or web address] <ELECTRONICALLY SIGNED> By: Dong Parker MD, [facility] 05/03/19 1250 1458 1458 Dong Parker MD, FACC /EPI
== END 2019-05-01 20:40 | disposition home or self-care (01) ==
LOC: ER 14:49
PROVIDERS: Physician Assistant
DX: N39.0 Urinary tract infection, site not specified (principal); A59.9 Trichomoniasis, unspecified; K58.9 Irritable bowel syndrome, unspecified; F32.9 Major depressive disorder, single episode, unspecified; Z85.05 Personal history of malignant neoplasm of liver; Z90.49 Acquired absence of other specified parts of digestive tract; Z86.718 Personal history of other venous thrombosis and embolism; Z91.048 Other nonmedicinal substance allergy status; Z88.0 Allergy status to penicillin; Z88.1 Allergy status to other antibiotic agents; Z88.2 Allergy status to sulfonamides; Z88.6 Allergy status to analgesic agent; Z88.8 Allergy status to other drugs, medicaments and biological substances

== ENCOUNTER 2019-09-05 00:41 | Emergency (ER) | payer OTHER ==
[~2019-09-05] VITALS: Ht 157.5 cm; Wt 72.6 kg
[2019-09-05 01:45] LABS: HEMATOCRIT 35.9 % (37.0-47.0); HEMOGLOBIN 12.5 gm/dL (12.0-15.0); MCH 32.5 pg (26.0-34.0); MCHC 34.7 g/dL (28.0-37.0); MCV 93.6 fL (80.0-100.0); RBC 3.84 mil/uL (4.20-5.00)
[2019-09-05 02:03] LABS: ANION GAP 9 mmol/L (7-16); BUN 8 mg/dL (7-18); CALCIUM 7.6 mg/dL (8.5-10.1); CHLORIDE 103 mmol/L (98-107); CO2 24 mmol/L (21-32); CREATININE 0.9 mg/dL (0.6-1.0); GLUCOSE 99 mg/dL (74-106); POTASSIUM 3.9 mmol/L (3.5-5.1); SODIUM 136 mmol/L (136-145)
[2019-09-05 02:17] LABS: ALBUMIN 3.4 g/dL (3.4-5.0); DIRECT BILIRUBIN < 0.1 mg/dL (<0.1-0.2); MAGNESIUM 1.9 mg/dL (1.8-2.4); SGOT 26 U/L (15-37); SGPT 27 U/L (30-65); TOTAL BILIRUBIN 0.2 mg/dL (<0.1-1.0); TOTAL PROTEIN 6.3 g/dL (6.4-8.2); TROPONIN-I <0.06 ng/mL (<0.06)
[2019-09-05 02:43] VITALS: BP 101/54
--- NOTE | 2019-09-05 09:02 | EKG ---
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: Bunch Maker Hand: LANI : 1980 Requested By: Verito Lyn Order Number: [id number] MD: Dong Parker Measurements Intervals [place] Rate: 108 P: 52 [place]: 150 QRS: 54 QRSD: 79 T: 39 QT: 327 QTc: 439 Interpretive Statements Sinus tachycardia Low voltage Compared to ECG 05/01/2019 14:58:32 Heart rate has increased Electronically Signed On 09-05-2019 9:01:00 CDT by Dong Parker [email or web address] <ELECTRONICALLY SIGNED> By: Dong Parker MD, [facility] 09/05/19900 Dong Parker MD, [facility] /EPI
== END 2019-09-05 03:00 | disposition left against medical advice (07) ==
LOC: ER 00:41
PROVIDERS: Emergency Medicine
DX: G89.29 Other chronic pain (principal); R10.9 Unspecified abdominal pain; R07.89 Other chest pain; R11.2 Nausea with vomiting, unspecified; R19.7 Diarrhea, unspecified; I25.2 Old myocardial infarction; Z90.5 Acquired absence of kidney; Z88.8 Allergy status to other drugs, medicaments and biological substances; Z88.1 Allergy status to other antibiotic agents; Z88.0 Allergy status to penicillin; Z88.2 Allergy status to sulfonamides; Z91.048 Other nonmedicinal substance allergy status; Z88.7 Allergy status to serum and vaccine; Z85.05 Personal history of malignant neoplasm of liver; Z85.528 Personal history of other malignant neoplasm of kidney; Z86.718 Personal history of other venous thrombosis and embolism; Z79.899 Other long term (current) drug therapy

== ENCOUNTER 2019-12-13 02:34 | Emergency (ER) | payer OTHER ==
[~2019-12-13] VITALS: Ht 157.5 cm; Wt 69.8 kg
[2019-12-13] MEDS ORDERED: NORFLEX100 MG PO (02:43)
[2019-12-13 03:41] LABS: URINE BILIRUBIN NEGATIVE (Negative); URINE BLOOD 3+ (Negative); URINE CLARITY SL CLOUDY; URINE COLOR YELLOW; URINE GLUCOSE-RANDOM* NEGATIVE (Negative); URINE KETONES NEGATIVE (Negative); URINE LEUKOCYTES-REFLEX NEGATIVE (Negative); URINE NITRITE-REFLEX NEGATIVE (Negative); URINE PROTEIN (DIPSTICK) NEGATIVE (Negative); URINE SPECIFIC GRAVITY >= 1.030 (1.005-1.035); URINE UROBILINOGEN 0.2 E.U./dl (0.2-1.0)
[2019-12-13 03:46] LABS: ABSOLUTE NEUTROPHILS 3.5 thou/uL (1.4-8.2); BASOPHILS 0.7 % (0.0-2.0); EOSINOPHILS 3.1 % (0.0-3.0); HEMATOCRIT 34.9 % (37.0-47.0); HEMOGLOBIN 11.7 gm/dL (12.0-15.0); LYMPHOCYTES 30.9 % (24.0-44.0); MCH 32.2 pg (26.0-34.0); MCHC 33.6 g/dL (28.0-37.0); MCV 95.8 fL (80.0-100.0); MONOCYTES 7.5 % (1.0-8.0); PLATELET COUNT 250 thou/uL (150-400); POLYS 57.8 % (36.0-66.0); RBC 3.64 mil/uL (4.20-5.00); RDW 13.3 % (10.5-14.5)
[2019-12-13 03:47] LABS: CALCIUM 8.1 mg/dL (8.5-10.1); CREATININE 0.8 mg/dL (0.6-1.0); POTASSIUM 3.6 mmol/L (3.5-5.1)
[2019-12-13 03:48] LABS: BACTERIA-REFLEX 1-9 Few /HPF (None Seen); CASTS None Seen /LPF (None Seen); CRYSTALS None Seen /LPF (None Seen); MUCUS >6 Heavy strn/LPF (None Seen); SQUAMOUS 4-10 Moderate /LPF (0-3); URINE WBC-REFLEX 0-5 Rare /HPF (0-5)
[2019-12-13 03:50] LABS: ALBUMIN 3.4 g/dL (3.4-5.0); TOTAL BILIRUBIN 0.1 mg/dL (0.2-1.0); TOTAL PROTEIN 6.1 g/dL (6.4-8.2)
[2019-12-13 04:55] VITALS: BP 129/70
== END 2019-12-13 04:56 | disposition home or self-care (01) ==
LOC: ER 02:34
PROVIDERS: Emergency Medicine
DX: R10.9 Unspecified abdominal pain (principal); R11.10 Vomiting, unspecified; F12.90 Cannabis use, unspecified, uncomplicated; F11.10 Opioid abuse, uncomplicated; G89.29 Other chronic pain; Z88.6 Allergy status to analgesic agent; Z88.1 Allergy status to other antibiotic agents; Z88.0 Allergy status to penicillin; Z88.2 Allergy status to sulfonamides; Z88.7 Allergy status to serum and vaccine; Z79.899 Other long term (current) drug therapy; Z87.11 Personal history of peptic ulcer disease; Z90.49 Acquired absence of other specified parts of digestive tract; Z86.718 Personal history of other venous thrombosis and embolism

== ENCOUNTER 2020-01-26 01:42 | Emergency (ER) | payer OTHER ==
[~2020-01-26] VITALS: Ht 157.5 cm; Wt 71.7 kg
[2020-01-26] MEDS ORDERED: OXYCODONE PO (01:54)
[2020-01-26] MEDS ORDERED: XTAMPZA ER27 MG PO (01:55)
[2020-01-26] MEDS ORDERED: VITAMIN B-121000 MC2 SUBLING (01:55)
[2020-01-26] MEDS ORDERED: VITAMIN D31250 MC1 PO (01:56)
[2020-01-26 02:56] VITALS: BP 122/75
== END 2020-01-26 02:59 | disposition left against medical advice (07) ==
LOC: ER 01:42
DX: K92.0 Hematemesis (principal); G89.29 Other chronic pain; R10.9 Unspecified abdominal pain; Z76.5 Malingerer [conscious simulation]; Z79.899 Other long term (current) drug therapy; Z88.2 Allergy status to sulfonamides; Z88.8 Allergy status to other drugs, medicaments and biological substances; Z88.0 Allergy status to penicillin; Z88.1 Allergy status to other antibiotic agents; Z91.048 Other nonmedicinal substance allergy status; Z90.49 Acquired absence of other specified parts of digestive tract

== ENCOUNTER 2020-04-18 01:24 | Emergency (ER) | payer OTHER ==
[~2020-04-18 01:24] MED LIST changes: +OXYCODONE PO; +VITAMIN B-121000 MC2 SUBLING; +VITAMIN D31250 MC1 PO; +XTAMPZA ER27 MG PO
== END 2020-04-18 02:22 | disposition left against medical advice (07) ==
LOC: ER 01:24
DX: R10.31 Right lower quadrant pain (principal); Z53.21 Procedure and treatment not carried out due to patient leaving prior to being seen by health care provider